=== PATIENT | male | born 1955 | race Caucasian/White ===

== ENCOUNTER 2019-06-06 16:55 | Outpatient (RCR) | payer OTHER, SELFPAY ==
--- NOTE | 2019-06-06 17:40 | PTOPEVAL ---
Thank you for referring this patient to [facility]. Please review, sign, date and return this plan of care SOUMYA. I agree with and certify that the following plan of care is medically necessary. Referring Physician Date Admitting Provider: Attending Provider: PHYSICIAN NOT ON STAFF Referring Provider: *PT Outpatient Evaluation Start: 06/06/19 17:04 Freq: Status: Active Protocol: Document 06/06/19 17:04 NOHELIA (Rec: 06/06/19 17:40 [email or web address] [email or web address]) Therapy Assessment Status Assessment Status Assessment Status Evaluation Evaluation Information Problem Diagnosis BPPV Onset 05/23/19 Subjective Information Pt. reports severe dizziness a Query Text:As Reported By Patient/ couple weeks ago. He reports Family that he had symptoms everyday for 1 week. He reports that since the symptoms have subsided. He reports that he notes ringing in both ears since dizziness subsided. Pt. reports no progression or regression in regards to the ringing. He reports that his goal is to reduce dizziness and ringing in the ears. Prior Level of Function Activity Level (Last 3 Months) Occupation safety officer Hand Dominance Right Activity of Daily Living Ability Independent Indoor/Home Mobility Independent Community Mobility Independent Stairs Ability Independent Functional Cognition (Planning, Shopping Independent , Taking Medications) Cooking Yes Cleaning Yes Laundry Yes Shopping Yes Driving Yes Pain Assessment Self Report Self Report Pain Level 0 Pain Score Pain Score 0: Self Report Cervical and Lumbar ROM Cervical ROM Cervical Flexion (0-60) 55 Query Text:Active in Degrees Cervical Extension (0-70) 60 Query Text:Active in Degrees Cervical Lateral Flexion Right (0-50) 40 Query Text:Active in Degrees Cervical Lateral Flexion Left (0-50) 40 Query Text:Active in Degrees Cervical Rotation Right (0-90) 75 Query Text:Active in Degrees Cervical Rotation Left (0-90) 75 Query Text:Active in Degrees Vestibular Evaluation Vestibular Testing Head Shake without Fixation WNL Head Shake with Fixation WNL Faisal-Hallpike Left WNL Faisal-Hallpike Right
== END 2019-06-06 18:02 | disposition home or self-care (01) ==
LOC: CHSPT 16:55
DX: R42 Dizziness and giddiness (principal)
CPT/HCPCS: 97161